=== PATIENT | male | born 1980 | race Caucasian/White ===

== ENCOUNTER → 2016-02-29 20:47 | Emergency (ER) | payer OTHER ==
[~2016-02-29] VITALS: Ht 180.3 cm; Wt 116.1 kg
[~2016-02-29 20:47] MED LIST: ADDERALL XR 1010 MG PO; ADDERALL XR 2020 MG PO; ALBUTEROL SULF8.5 GM IH; ANAPROX275 M1 PO; ASPIRIN EC325 MG PO; Ativan PO; BENZONATATE100 MG PO; CLARITIN,ALAVAR10 MG PO; HYDROXYZINE HCL25 MG PO; IBUPROFEN400 MG PO; IMODIUM A-1 MG/7.5 M PO; IMODIUM A-D2 M1 PO; IRON325 M1 PO; KADIAN30 MG PO; MEN'S ONE DAIL1 EACH PO; MORPHINE SULFAT15 MG PO; MOTRIN IB200 MG PO; Motrin PO; NABUMETONE500 MG PO; ROBITUSSIN AC,T10 ML PO; Tylenol Regular Stre PO; ULTRAM50 MG PO; VALPROIC ACID250 MG PO; VENTOLIN HFA18 GM IH; ZITHROMAX250 MG PO; ZOFRAN4 MG PO
[2016-02-29 21:09] VITALS: BP 152/94
== END | disposition left against medical advice (07) ==
LOC: EME 20:47
DX: R82.99 Other abnormal findings in urine (principal); Z53.21 Procedure and treatment not carried out due to patient leaving prior to being seen by health care provider

== ENCOUNTER 2017-08-31 14:58 | Emergency (ER) | payer OTHER ==
[~2017-08-31] VITALS: Ht 177.8 cm; Wt 85.0 kg
[2017-08-31 15:45] LABS: HEMATOCRIT 44.7 % (38.0-50.0); HEMOGLOBIN 16.1 G/DL (12.5-16.6); MCH 31.1 PG (29.0-34.0); MCV 86.5 FL (86-99); PLATELET COUNT 307 K/uL (156-360); RBC DIS.WIDTH-SD 38.1 % (39-53); RED BLOOD COUNT 5.17 M/uL (4.00-5.50); WHITE BLOOD COUNT 10.5 K/uL (4.1-10.2)
[2017-08-31 15:54] LABS: ALBUMIN 4.1 g/dL (3.2-4.8); CHLORIDE 106 mEq/L (99-109); POTASSIUM 3.8 mEq/L (3.7-5.4); SODIUM 141 mEq/L (136-147)
[2017-08-31 15:56] LABS: D-DIMER ELISA < 150.00 ng/mLDDU (<230); GLUCOSE 92 mg/dL (70-99)
[2017-08-31 15:58] LABS: TOTAL BILIRUBIN 0.6 mg/dL (0.0-1.0)
[2017-08-31 16:00] LABS: ALKALINE PHOSPHATASE 94 IU/L (3-129); CREATININE 1.1 mg/dL (0.6-1.3); GFR ESTIMATE (CALCULATED) > 59 mL/min/ (58.99-99999)
[2017-08-31 16:01] LABS: UREA NITROGEN (BUN) 13 mg/dL (9-23)
[2017-08-31 16:02] LABS: AST (GOT) 20 IU/L (2-34)
[2017-08-31 16:03] LABS: ALT (GPT) 24 IU/L (3-49)
[2017-08-31 16:08] LABS: TROP-I INTERPRETATION NEGATIVE; TROPONIN-I < 0.01 ng/mL (0.0-0.30)
[2017-08-31 19:44] LABS: TROP-I INTERPRETATION NEGATIVE; TROPONIN-I < 0.01 ng/mL (0.0-0.30)
[2017-08-31 20:35] VITALS: BP 125/88
== END 2017-08-31 20:51 ==
LOC: EME 14:58
PROVIDERS: Emergency Medicine
DX: R07.9 Chest pain, unspecified (principal); F41.9 Anxiety disorder, unspecified; R51 Headache; Z82.3 Family history of stroke; Z82.49 Family history of ischemic heart disease and other diseases of the circulatory system; F17.200 Nicotine dependence, unspecified, uncomplicated; K21.9 Gastro-esophageal reflux disease without esophagitis; F31.9 Bipolar disorder, unspecified; Z88.0 Allergy status to penicillin
CPT/HCPCS: 70450; 71045; 80053; 84484; 85027; 85379; 93005; 99281; 99285